=== PATIENT | male | born 1990 | race Caucasian/White ===

== ENCOUNTER 2021-12-30 13:48 | Emergency (ER) | payer MEDICAID ==
[~2021-12-30] VITALS: Ht 172.7 cm; Wt 66.0 kg
[2021-12-30 13:58] VITALS: BP 130/78
== END 2021-12-30 17:48 | disposition left against medical advice (07) ==
LOC: ER 14:04
DX: S01.112A Laceration without foreign body of left eyelid and periocular area, initial encounter (principal); S09.8XXA Other specified injuries of head, initial encounter; Y00.XXXA Assault by blunt object, initial encounter; Y93.89 Activity, other specified; Y92.59 Other trade areas as the place of occurrence of the external cause
CPT/HCPCS: 99283